=== PATIENT | male | born 1960 | race Caucasian/White ===

== ENCOUNTER → 2016-10-19 | Outpatient (CLI) | payer MEDICAID | LOC: FIMAGING 11:52 | PROVIDERS: ATTEND Family Medicine | DX: M19.071 Primary osteoarthritis, right ankle and foot (principal); M77.31 Calcaneal spur, right foot ==

== ENCOUNTER 2017-05-31 09:26 | Inpatient (IN) | payer MEDICAID ==
[2017-05-31] MEDS ORDERED: ceFAZolin 1 GM/5 ML SYR ONE (09:33)
[2017-05-31] MEDS ORDERED: HEPARIN 1000 UNIT/1 ML MDV ONE (09:33)
[2017-05-31] MEDS ORDERED: BUPIVACAINE 0.5% 30 ML SDV ONE (09:33)
[2017-05-31] MEDS ORDERED: cefOXitin SODIUM 2 GM in STERILE WATER INJ 21 ML IV ONE (09:34)
[2017-05-31] MEDS ORDERED: LR 1,000 ML IV ONE (09:35)
[2017-05-31] MEDS ORDERED: LIDOCAINE 1% 2 ML INJ ID PRN (09:35)
--- NOTE | 2017-05-31 09:36 | PDANEPAE ---
ANE History of Present Illness Left laparoscopic colectomy ANE Past Medical History - Cardiovascular History Hx Hypertension: Yes Hx Arrhythmias: No Hx Chest Pain: No Hx Coronary Artery / Peripheral Vascular Disease: No Hx CHF / Valvular Disease: No Hx Palpitations: No Cardiovascular History Comment: on Chol Rx - Pulmonary History Hx COPD: No Hx Asthma/Reactive Airway Disease: No Hx Recent Upper Respiratory Infection: No Hx Oxygen in Use at Home: No Hx Sleep Apnea: No Sleep Apnea Screening Result - Last Documented: Positive - Neurologic History Hx Cerebrovascular Accident: No Hx Seizures: No Hx Dementia: No - Endocrine History Hx Diabetes: No Endocrine History Comment: thyroid - Renal History Hx Renal Disorders: No Renal History Comment: nocturia x1 - Liver History Hx Hepatic Disorders: No - Neurological & Psychiatric Hx Hx Neurological and Psychiatric Disorders: No - Cancer History Hx Cancer: No - Congenital Disorder History Hx Congenital Disorders: No - GI History Hx Gastrointestinal Disorders: Yes Gastrointestinal History Comment: blood in stool, tumor in colon. - Other Health History Other Health History: gout-knee, foot. - Chronic Pain History Chronic Pain: No - Surgical History Prior Surgeries: no surgery ANE Review of Systems Review of Systems: - Exercise capacity METS (RN): 4 METS ANE Patient History - Allergies Allergies/Adverse Reactions: No Known Allergies Allergy (Verified 05/30/17 15:35) - Home Medications Home medications: home medication list seen and reviewed Home Medications: Amlodipine Besylate 05/30/17 [Last Taken 05/30/17 20:00] Aspirin 81mg (*) 05/30/17 [Last Taken 05/29/17 20:20] Levothyroxine Sodium 05/30/17 [Last Taken 05/30/17 20:00] Pravastatin Sodium 05/30/17 [Last Taken 05/30/17 20:00] - Anes Hx Anes Hx: no prior problems - Smoking Hx Smoking Status: Never smoked - Family Anes Hx Family Hx Anesthesia Complications: none ANE Labs/Vital Signs - Labs Result Diagrams: 05/31/17 09:50 - Vital Signs Height: 165.1 cm Weight: 83.915 kg ANE Physical Exam - Airway Neck exam: decreased ROM Mallampati Score: Class 3 Mouth exam: aponte - Pulmonary Pulmonary: no respiratory distress - Cardiovascular Cardiovascular: regular rate and rhythym, no murmur, rub, or gallop - ASA Status ASA Status: II ANE Anesthesia Plan Specialized Airway: video laryngoscope
[2017-05-31 10:03] LABS: PLATELET COUNT 382 10^3/uL (150-400)
--- NOTE | 2017-05-31 10:44 | PDHPUP ---
History & Physical Update H&P update statement: This history and physical update is based on an assessment of the patient which was completed after admission or registration (within 24 hours), but prior to the surgery/procedure. H&P update: H&P reviewed & patient examined, no change in patient's condition since H&P completed
[2017-05-31] MEDS ORDERED: MIDAZOLAM 2 MG/2 ML VIAL IVP ONE (11:03)
[2017-05-31] MEDS ORDERED: fentaNYL 250 MCG/5 ML INJ ONE (11:18)
[2017-05-31] MEDS ORDERED: PROPOFOL/EMULSION 500 MG/50 ML BOTTLE IV ONE ×2 (11:18)
[2017-05-31] MEDS ORDERED: GLYCOPYRROLATE 0.2 MG/1 ML VIAL ONE (11:20)
[2017-05-31] MEDS ORDERED: PROPOFOL 200 MG/20 ML VIAL ONE (12:46)
[2017-05-31] MEDS ORDERED: fentaNYL 100 MCG/2 ML INJ ONE (12:46)
[2017-05-31] MEDS ORDERED: DEXAMETHASONE 4 MG/ML VIAL ONE (12:57)
[2017-05-31] MEDS ORDERED: KETOROLAC 30 MG/1 ML SDV ONE (12:58)
[2017-05-31] MEDS ORDERED: ONDANSETRON 4 MG/2 ML VIAL ONE (12:58)
[2017-05-31] MEDS ORDERED: HYDROmorphONE/DILAUDID 2 MG/ML INJ ONE (13:03)
[2017-05-31] MEDS ORDERED: HYDROmorphONE/DILAUDID 1 MG/ML INJ IVP PRN (13:46)
[2017-05-31] MEDS ORDERED: DIAZEPAM 5 MG/ML 1 ML SYR IVP PRN (13:46)
[2017-05-31] MEDS ORDERED: ONDANSETRON 4 MG/2 ML VIAL IVP PRN (13:46)
[2017-05-31] MEDS ORDERED: NS 500 ML IV PRN (13:46)
[2017-05-31] MEDS ORDERED: PROMETHAZINE HCL 25 MG/ML INJ IVP PRN (13:46)
[2017-05-31] MEDS ORDERED: NALOXONE HCL 0.4 MG/ML INJ IVP PRN ×2 (13:46→14:07)
[2017-05-31] MEDS ORDERED: fentaNYL 100 MCG/2 ML INJ IVP PRN (13:46)
--- NOTE | 2017-05-31 14:05 | POSTOPPROG ---
Post Op Note Date of Operation: 05/31/17 Surgeon: Matt Fisher Tube Room Cashier: Magy Ovalle Anesthesiologist: Shruti Blake Anesthesia: GET(General Endotracheal) Pre-op Diagnosis: rectosigmoid colon cancer Post-op Diagnosis: same Procedure: lap assisted low anterior resection Findings: tumor in specimen Inf/Abcess present in the surg proc area at time of surgery?: No EBL: 50-100 Complications: none Specimen(s): sigmoid colon and anastomotic rings to pathology
[2017-05-31] MEDS ORDERED: HYDROmorphONE/DILAUDID 6 MG/30 ML PCA IV PRN (14:07)
[2017-05-31] MEDS ORDERED: KETOROLAC 15 MG/1 ML SDV IVP ONE (14:07)
[2017-05-31] MEDS ORDERED: SUGAMMADEX SODIUM 200 MG/2 ML VIAL IVP ONE (15:09)
[2017-05-31] MEDS: D5W 1/2 NS W/ 20 KCl/L 1,000 ML IV SCH (17:07)
--- NOTE | 2017-05-31 17:10 | POSTANESTH ---
Post Anesthetic Evaluation Cardiovascular Status: Normal, Stable Respiratory Status: Normal, Stable Level of Consciousness/Mental Status: Can Participate in Eval Pain Control: Adequate, Prn Tx Ordered Nausea/Vomiting Control: Adequate, Prn Tx Ordered Complications Possibly Related to Anesthesia: None Noted
[2017-05-31] MEDS: KETOROLAC 15 MG/1 ML SDV IVP SCH ×2 (18:21→23:37)
[2017-05-31] MEDS: ONDANSETRON 4 MG/2 ML VIAL IVP PRN (20:14)
[2017-05-31] MEDS: PRAVASTATIN SODIUM 40 MG TAB PO SCH (20:25)
[2017-05-31] MEDS: DOCUSATE SODIUM 100 MG CAP PO SCH (20:25)
[2017-05-31] MEDS: LEVOTHYROXINE 175 MCG TAB PO SCH (20:26)
[2017-05-31] MEDS: OXYCODONE/APAP 5/325 TAB PO PRN (20:26)
[2017-05-31] MEDS: ASPIRIN 81 MG CHEWABLE TAB PO SCH (20:28)
[2017-06-01] MEDS: D5W 1/2 NS W/ 20 KCl/L 1,000 ML IV SCH (01:21)
[2017-06-01] MEDS: OXYCODONE/APAP 5/325 TAB PO PRN ×3 (01:22→21:23)
[2017-06-01] MEDS: KETOROLAC 15 MG/1 ML SDV IVP SCH ×4 (05:04→23:49)
--- NOTE | 2017-06-01 06:39 | PDMN ---
Medical Necessity Medical necessity: [facility] IP only surgery; cpt 79149 Sigmoid Colectomy
[2017-06-01] MEDS: DOCUSATE SODIUM 100 MG CAP PO SCH ×2 (07:51→21:23)
--- NOTE | 2017-06-01 10:52 | SOAPPROG ---
SOAP Progress Note Assessment/Plan: Assessment/Plan: 56 Y M s/p laparoscopic assisted LAR for rectosigmoid colon cancer, POD#1. Clear liquid diet. Continue pain control. D/c tinoco. Chemical VTE ppx tomorrow. OOB today. Pathology pending. S: some pain overnight, better this am. Passing some gas. O: alert, nad ncat, mmm, no jaundice ctab rrr abd protuberant, hypoactive BS, wounds well dressed 06/01/17 10:50 Objective: Vital Signs Temp Pulse Resp BP Pulse Ox 36.6 C 74 20 156/98 H 95 06/01/17 07:56 06/01/17 07:56 06/01/17 07:56 06/01/17 07:56 06/01/17 07:56 Laboratory Results 06/01/17 04:19 06/01/17 04:19 05/31/17 06/01/17 06/02/17 05:59 05:59 05:59 Intake Total 3248 Output Total 1000 Balance 2248 ICD10 Worksheet Patient Problems: Problems Problem Status Onset Colon cancer Acute - ICD10 Problem Qualifiers (1) Colon cancer
--- NOTE | 2017-06-01 15:38 | ASMTCMCOM ---
CM Note CM Note Notes: Pt with new dx of colon ca admitted for small bowel resection. Pt's DC needs are unclear at this time. CM will continue to follow. Date Signed: 06/01/2017 03:37 PM Electronically Signed By:Audrey Francois LCSW
[2017-06-01] MEDS: ONDANSETRON 4 MG/2 ML VIAL IVP PRN (16:58)
[2017-06-01] MEDS: PRAVASTATIN SODIUM 40 MG TAB PO SCH (21:23)
[2017-06-01] MEDS: LEVOTHYROXINE 175 MCG TAB PO SCH (21:24)
[2017-06-01] MEDS: ASPIRIN 81 MG CHEWABLE TAB PO SCH (21:24)
[2017-06-02] MEDS: KETOROLAC 15 MG/1 ML SDV IVP SCH ×3 (05:49→18:42)
--- NOTE | 2017-06-02 10:00 | SOAPPROG ---
SOAP Progress Note Assessment/Plan: Assessment: 56 y/o male s/p lap assisted low anterior resection for rectal cancer 05/31 S: Doing well. Still distended, but passing flatus and some bloody liquid stool. O: Alert Afebrile RRR No increased WOB Abdomen; distended, appropriately tender to touch. +BS. Incisions cdi. Plan: Continue clear liquid diet until passing more gas and stool. Get out of bed and walk as much as possible. 06/02/17 09:56 Objective: Vital Signs Temp Pulse Resp BP Pulse Ox 36.7 C 78 19 163/95 H 92 06/02/17 08:17 06/02/17 08:17 06/02/17 08:17 06/02/17 08:17 06/02/17 08:17 Laboratory Results 06/01/17 04:19 06/01/17 04:19 06/01/17 06/02/17 06/03/17 05:59 05:59 05:59 Intake Total 3248 3325 Output Total 1000 1750 Balance 2248 1575 ICD10 Worksheet Patient Problems: Problems Problem Status Onset Colon cancer Acute
[2017-06-02] MEDS: ENOXAPARIN 40 MG/0.4 ML SYR SC SCH (10:05)
[2017-06-02] MEDS: DOCUSATE SODIUM 100 MG CAP PO SCH ×2 (10:06→20:39)
--- NOTE | 2017-06-02 12:15 | ASMTCMCOM ---
CM Note CM Note Notes: Spoke with pt today about DC needs. Pt and his did not think he needed any services in the home at [place]. Also spoke with pt about his new dx and if needed anyhelp or information. Pt stated he did not where to go for outpt oncology and had not been given any information yet about his dx. Loly Burks, onc puja, will meet with pt to provide any info she can and to answer questions. Magy Gomez will also meet briefly with pt to give hime info on oncology services closer to his home in [place]. CM to follow as needed. Date Signed: 06/02/2017 12:15 PM Electronically Signed By:uAdrey Francois LCSW
[2017-06-02] MEDS: LEVOTHYROXINE 175 MCG TAB PO SCH (20:38)
[2017-06-02] MEDS: PRAVASTATIN SODIUM 40 MG TAB PO SCH (20:39)
[2017-06-02] MEDS: ASPIRIN 81 MG CHEWABLE TAB PO SCH (20:39)
[2017-06-02] MEDS: OXYCODONE/APAP 5/325 TAB PO PRN (20:40)
[2017-06-03] MEDS: KETOROLAC 15 MG/1 ML SDV IVP SCH ×4 (00:20→18:24)
--- NOTE | 2017-06-03 08:07 | SOAPPROG ---
SOAP Progress Note Assessment/Plan: Assessment: 56 y/o male s/p lap assisted low anterior resection for rectal cancer 05/31 S: Continues to improve. Passing gas and liquid BMs. Eager to eat solid food. O: Alert Afebrile RRR No increased WOB Abdomen; less distended than yesterday, mildly tender to touch. +BS. Incisions cdi. Plan: Advance diet. Likely home tomorrow or Tuesday. 06/03/17 08:05 Objective: Vital Signs Temp Pulse Resp BP Pulse Ox 36.5 C 77 16 160/95 H 95 06/03/17 04:23 06/03/17 04:23 06/03/17 04:23 06/03/17 04:23 06/03/17 04:23 Laboratory Results 06/01/17 04:19 06/01/17 04:19 06/02/17 06/03/17 06/04/17 05:59 05:59 05:59 Intake Total 3325 3500 Output Total 1750 Balance 1575 3500 ICD10 Worksheet Patient Problems: Problems Problem Status Onset Colon cancer Acute
[2017-06-03] MEDS: ENOXAPARIN 40 MG/0.4 ML SYR SC SCH (09:34)
[2017-06-03] MEDS: DOCUSATE SODIUM 100 MG CAP PO SCH ×2 (09:34→20:45)
--- NOTE | 2017-06-03 15:59 | ASMTCMCOM ---
CM Note CM Note Notes: Elke Burks, Onc Edouard and Dr Flores, Oncologist, met with pt today to answer questions egarding his new colon ca dx and to provide support. Dr Preston recommended Dr Hood in [place] where pt lives. Pt plans to set up an appt with him. Pt progressing well and has no DC needs. Date Signed: 06/03/2017 03:58 PM Electronically Signed By:Audrey Francois LCSW
--- NOTE | 2017-06-03 16:07 | GHP ---
[f rep st] HISTORY AND PHYSICAL DATE OF ADMISSION: 05/31/2017 REASON FOR CONSULTATION: Colorectal cancer. HISTORY OF PRESENT ILLNESS: The patient is a pleasant 56-year-old gentleman who developed episodes o f bright red blood per rectum. He has no history of prior colonoscopy. He was seen by his primary c are physician and referred to Dr. Anant Hsieh for endoscopic evaluation. He was found to have an invasive moderately differentiated adenocarcinoma involving the rectosigmoid junction at approximate ly 20 cm from the anal verge. The patient was referred to Dr. Fisher for surgery. The patient underw ent a laparoscopic right hemicolectomy on May 31, 2017. Final pathology is currently pending. The patient is doing well postoperatively. He denies pain. He has multiple questions about colorect al cancer and its potential treatments. He is accompanied this afternoon by his mother. PAST MEDICAL HISTORY: 1. Gout. 2. Hyperlipidemia. 3. Hypertension. ALLERGIES: No known drug allergies. PRIOR SURGICAL HISTORY: None. FAMILY MEDICAL HISTORY: Patient reports colorectal cancer diagnosed in a paternal uncle in his 70s a nd a paternal aunt in her late 80s/early 90s. He denies any other known family history of malignancy . SOCIAL HISTORY: The patient is single. He lives in [place], [place]. He has a 25-year-old adiel valentine who lives in [place]. He works in the construction business. He is a nonsmoker. He drinks appro ximately 3 beers weekly. REVIEW OF SYSTEMS: As outlined above. Additionally, denies abdominal pain or bloating. Denies weig ht loss. Denies chest pain, cough, exertional dyspnea. Denies bone pain. Denies fevers, chills, or recent infection. Denies extremity pain or swelling. PHYSICAL EXAMINATION: GENERAL: The patient is appears comfortable. He is in no acute distress. AB DOMEN: Soft. There is minimal teodoro-incisional tenderness. Surgical port sites are healing. Bowel sounds normoactive. No organomegaly or mass. EXTREMITIES: No extremity swelling or edema. PSYCHIA TRIC: Patient is alert, oriented, and appropriate. LABORATORY STUDIES: White count 6.6, hemoglobin 16.3, hematocrit 47.6, platelet count is 382,000. S odium 138, potassium 4.7, chloride 106, bicarb 23, BUN 12, creatinine 0.9. IMPRESSION: 1. Colorectal carcinoma involving sigmoid colon, status post surgical resection. 2. Family history of colon cancer. PLAN: John is a pleasant 56-year-old gentleman who was found to have an invasive adenocarcinoma inv olving the rectosigmoid colon. He has undergone surgical resection. Final pathology is currently pe nding. I reviewed the general treatment of colorectal cancer with the patient and his mother. We specifical ly discussed the indications for adjuvant therapy including positive regional lymph node involvement. The patient does have a positive family history of colorectal cancer and testing for microsatellite i nstability has been requested. The patient will need a staging CT of the abdomen and pelvis to complete his staging. This can certa inly be done in the outpatient setting. We discussed medical oncology followup. The patient lives in [place]. His mother is familiar with Judy Hood in [place]. They have Dr. Hood's contact information and plan to contact him for c onsultation. I have also given the patient my contact information and indicated to him that I would be happy to see him in the office if he so desires. He understands it is important to follow up with Oncology to review his postoperative pathology and to discuss any need for adjuvant therapy. At the close of our visit, he plans to contact Dr. Hood for this and knows he needs to do this within a fe w weeks after discharge. I have thus not scheduled any further followup with the patient. He and his mother had multiple questions which were answered. Total time for today's visit was approximately 45 minutes of which greater than 50% was spent in coun seling and care coordination. /[id number]/MODL
[2017-06-03] MEDS: LEVOTHYROXINE 175 MCG TAB PO SCH (20:43)
[2017-06-03] MEDS: PRAVASTATIN SODIUM 40 MG TAB PO SCH (20:43)
[2017-06-03] MEDS: OXYCODONE/APAP 5/325 TAB PO PRN (20:45)
[2017-06-03] MEDS: ASPIRIN 81 MG CHEWABLE TAB PO SCH (20:45)
[2017-06-04] MEDS: KETOROLAC 15 MG/1 ML SDV IVP SCH ×2 (00:11→05:35)
[2017-06-04] MEDS: OXYCODONE/APAP 5/325 TAB PO PRN (00:14)
[2017-06-04] MEDS: ENOXAPARIN 40 MG/0.4 ML SYR SC SCH (09:49)
[2017-06-04] MEDS: DOCUSATE SODIUM 100 MG CAP PO SCH (09:49)
--- NOTE | 2017-06-04 10:52 | SOAPPROG ---
DEJAN Progress Note Assessment/Plan: Assessment: 56 y/o male s/p lap assisted low anterior resection for rectal cancer 05/31 Path shows invasive adenocarcinoma with 2/37 nodes positive S: Continues to improve. Eager to be discharged. Tolerating a regular diet. Passing gas and liquid stool O: Alert Afebrile RRR No increased WOB Abdomen; less distended than yesterday, mildly tender to touch. +BS. Incisions cdi. Plan: Pt seen with Dr. King. Discussed path results with pt and . Pt will need to follow up with medical oncology for further treatment. Discharge home today. 06/04/17 10:50 Objective: Vital Signs Temp Pulse Resp BP Pulse Ox 36.4 C 68 16 146/90 H 94 06/04/17 08:58 06/04/17 08:58 06/04/17 08:58 06/04/17 08:58 06/04/17 08:58 Laboratory Results 06/01/17 04:19 06/01/17 04:19 06/03/17 06/04/17 06/05/17 05:59 05:59 05:59 Intake Total 3500 1200 Balance 3500 1200 ICD10 Worksheet Patient Problems: Problems Problem Status Onset Colon cancer Acute
[2017-06-04 11:12] VITALS: BP 169/90
--- NOTE | 2017-06-04 11:14 | ASDISCHSUM ---
Discharge Information Plan Status:Home with No Needs Medically Cleared to Leave:06/04/2017 Discharge Date:06/04/2017 CM D/C Disposition:Home, Routine, Self-Care ADT D/C Disposition:Home, Routine, Self-Care Projected Discharge Date:06/04/2017 Transportation at D/C:Family Discharge Delay Reason: Follow-Up Date:06/04/2017 Discharge Slot: Final Diagnosis: Placement Information Patient Contact Information Contact Name:VENKATESH Relationship:Mother Address: [place] [place] Phone: [facility]/Zip Code:[place] [address] Email: Financial Information Financial Class:Medicaid Primary Plan Desc[place] Primary Plan Number:[id number] Secondary Plan Desc: Secondary Plan Number: Assessment Information LACE LACE Length of stay for Answers: 4-6 days current admission Acuity / Level of Answers: Yes Care: Did the patient have an inpatient admission? Comorbidities - select Answers: Any tumor (including all that apply lymphoma or leukemia) # of Emergency department Answers: 0 visits in the last 6 months Score: 9 Date Signed: 06/04/2017 11:12 AM Electronically Signed By:LISA Maldonado [facility] CM Progress Note CM Note CM Note Notes: Pt with new dx of colon ca admitted for small bowel resection. Pt's DC needs are unclear at this time. CM will continue to follow. Date Signed: 06/01/2017 03:37 PM Electronically Signed By:Audrey Francois LCSW [facility] CM Progress Note CM Note CM Note Notes: Spoke with pt today about DC needs. Pt and his did not think he needed any services in the home at [place]. Also spoke with pt about his new dx and if needed anyhelp or information. Pt stated he did not where to go for outpt oncology and had not been given any information yet about his dx. Loly Burks onc puja, will meet with pt to provide any info she can and to answer questions. Magy Jason will also meet briefly with pt to give hime info on oncology services closer to his home in [place]. CM to follow as needed. Date Signed: 06/02/2017 12:15 PM Electronically Signed By:Audrey Francois LCSW [facility] CM Progress Note CM Note CM Note Notes: Jennifer Meneses and Dr Flores, Oncologist, met with pt today to answer questions egarding his new colon ca dx and to provide support. Dr Preston recommended Dr Hood in [place] where pt lives. Pt plans to set up an appt with him. Pt progressing well and has no DC needs. Date Signed: 06/03/2017 03:58 PM Electronically Signed By:Audrey Francois LCSW Case Management Discharge Plan Note Case Management Discharge Discharge Order Complete? Answers: Yes Patient to Obtain Answers: via Family Medications Transportation Arranged Answers: Family/Friends Discharge Comments Notes: Pt is discharging home today with family and no CM needs. He will follow up with an oncologist in [place]. Date Signed: 06/04/2017 11:11 AM Electronically Signed By:LISA Maldonado Intervention Information
--- NOTE | 2017-06-05 09:43 | GOP ---
[f rep st] OPERATIVE REPORT DATE OF OPERATION: 05/31/2017 SURGEON: Matt Fisher MD RN OCCUPATIONAL: Magy Ovalle, PAC. ANESTHESIOLOGIST: Shruti Blake MD. PREOPERATIVE DIAGNOSIS: Rectosigmoid carcinoma. POSTOPERATIVE DIAGNOSIS: Rectosigmoid carcinoma. PROCEDURE PERFORMED: Laparoscopic low anterior colectomy with splenic flexure mobilization. FINDINGS: The patient was found to have a 4 cm mass at the rectosigmoid junction. No evidence of ob vious intraabdominal spread. DESCRIPTION OF PROCEDURE: The patient taken the operating room where he received a satisfactory gene ral endotracheal anesthesia by Dr. Blake, placed in the supine position in low stirrups, prepped and draped in the usual sterile fashion. A periumbilical incision was made. A Veress needle inserted. Pneumoperitoneum was established. Trocar was introduced. Laparoscope introduced. Good visualizati on was obtained. Three other trocars were placed in the lower abdomen under direct vision. The sigm oid colon was mobilized. The peritoneum was divided laterally on either side of the colon and rectum , and dissection extended down alongside the colon. There was no obvious ink around the tumor, but i t was felt to be palpable just above the peritoneal reflection. The areas were identified and spared from injury. The presacral space was entered and the colon and upper rectum were mobilized. Mesent shelly was divided with the Harmonic Scalpel, and the distal colon was mobilized and then divided with t he Endo-RAKAN stapler 4 cm below the palpable tumor. A short suprapubic incision was made, carried liz n through the subcutaneous tissue. The internal oblique was divided and the rectus muscles were sepa rated. The peritoneum was entered. The divided colon was brought out through the incision. The mes enteric division was completed with the Harmonic Scalpel and the proximal sigmoid colon was divided w ith the pursestring device, well above the tumor. The specimen was sent to Pathology, confirmed to c ontain the tumor with adequate margins. A 29 EEA was selected and the cap was placed in the proximal end of the colon and secured with a pursestring suture. It was then dropped back into the pelvis an d the suprapubic incision was temporarily closed with towel clips and atraumatic clamps. EEA was bro ught up through the rectum and the post of the EEA was brought out adjacent to the suture line. The 2 pieces were reconnected under laparoscopic guidance. The EEA was closed and fired and then removed . The anastomotic rings were quite good. Anastomosis was tested under water and appeared to be airt ight. Hemostasis was assured. The wound was irrigated. Trocars were then removed under direct visi on. Trocar sites were closed with 0 Vicryl for the fascia, 4-0 Monocryl subcuticular stitch for the skin. The suprapubic incision was closed with a running 0 Vicryl for the peritoneum and rectus muscl es, and a running #1 PDS suture for the anterior rectus sheath, 3-0 Vicryl for the subcu and a 4-0 Mo nocryl subcuticular stitch for the skin. All layers were infiltrated with 0.5% Marcaine. He tolerat ed the procedure well, was taken to the recovery room in good condition. COMPLICATIONS: There were no complications. /[id number]/MODL
== END 2017-06-04 12:52 | disposition home or self-care (01) | DRG 231 ==
LOC: FSGY 09:26 → F1N 14:05
PROVIDERS: ADMIT Surgery; ATTEND Surgery
PROC: 0DBN4ZZ Excision of Sigmoid Colon, Percutaneous Endoscopic Approach (ICD-10-PCS; principal; 2017-05-31 11:30)
PROC: 0DBP4ZZ Excision of Rectum, Percutaneous Endoscopic Approach (ICD-10-PCS; principal; 2017-05-31 11:30)
DX: C19 Malignant neoplasm of rectosigmoid junction (principal); C77.2 Secondary and unspecified malignant neoplasm of intra-abdominal lymph nodes; I10 Essential (primary) hypertension; M10.9 Gout, unspecified; E78.5 Hyperlipidemia, unspecified
CPT/HCPCS: J0694; J1100; J1170; J1650; J1885; J2250; J2405; J2704; J3010